=== PATIENT | male | born 1970 | race Caucasian/White ===

== ENCOUNTER 2019-04-27 17:29 | Emergency (ER) | payer OTHER ==
[~2019-04-27] VITALS: Ht 177.8 cm; Wt 102.1 kg
[2019-04-27 17:29] VITALS: BP_SYST 122
--- NOTE | 2019-04-27 17:40 | NUR ---
Patient triaged and placed in waiting room. VSS and patient appears in no acute distress at this time. Awaiting available bed, and MD notified of need for MSE.
--- NOTE | 2019-04-27 19:08 | NUR ---
REASSESSMENT; MINIMAL NUMBNESS TO RIGHT HAND AND RIGHT FACIAL; PATIENT RETURNED TO WAITING ROOM; STABLE
--- NOTE | 2019-04-27 20:03 | NUR ---
Patient to ER bed 02 to gown for evaluation. Side rails up. Report given to DOROTA Prajapati.
--- NOTE | 2019-04-27 20:05 | NUR ---
Patient report around 1700 today started to experience right sided numbness with no slurred speech non provoked. Patient now reports it has resolved but feeling tingling in tongue and jaw. Patient denies any pain. Denies any Hx. Reports having gallbladder surgery. No other complaints/injuries per patient or as noted. will continue to monitor
--- NOTE | 2019-04-27 20:11 | NUR ---
ER Dr. Daily at bedside examining patient.
--- NOTE | 2019-04-27 20:22 | NUR ---
Pt taken to CT via Radiology staff. Wheelchair
--- NOTE | 2019-04-27 20:30 | NUR ---
Patient returned from CT scan. VSS
[2019-04-27 20:45] LABS: BASOPHILS % (AUTO) 0.4 % (0.0-2.0); EOSINOPHILS # (AUTO) 0.2 K/uL (0.0-0.4); EOSINOPHILS % (AUTO) 2.8 % (0.0-4.0); HEMATOCRIT 42.5 % (36-54); HEMOGLOBIN 14.4 g/dL (14.0-18.0); LYMPHOCYTES # (AUTO) 2.3 K/uL (1.0-5.5); LYMPHOCYTES % (AUTO) 33.8 % (20.5-51.5); MEAN CORPUSCULAR HEMOGLOBIN 32 pg (27-31); MEAN CORPUSCULAR HGB CONC 34 % (32-36); MEAN CORPUSCULAR VOLUME 93 fL (79.0-98.0); MONOCYTES # (AUTO) 0.4 K/uL (0.0-1.0); MONOCYTES % (AUTO) 6.6 % (1.7-9.3); NEUTROPHILS # (AUTO) 3.8 K/uL (1.8-7.7); NEUTROPHILS % (AUTO) 56.4 % (40.0-70.0); PLATELET COUNT (AUTO) 295 K/uL (130-430); RED BLOOD CELL COUNT(AUTO) 4.58 MIL/uL (4.2-6.2); RED CELL DISTRIBUTION WIDTH 13.4 % (9.0-15.0); WHITE BLOOD COUNT (AUTO) 6.7 K/uL (4.8-10.8)
[2019-04-27 21:13] LABS: ANION GAP 9 (5-15); CALCIUM 9.3 mg/dL (8.4-11.0); CHLORIDE 104 mmol/L (98-107); CREATININE 1.19 mg/dL (0.55-1.30); GLUCOSE 94 mg/dL (70-99); POTASSIUM 4.4 mmol/L (3.5-5.1); SODIUM SERUM 140 mmol/L (136-145); UREA NITROGEN, BLOOD 21 mg/dL (8-21)
[2019-04-27 21:20] LABS: GFR AFRICAN AMERICAN 84 mL/min (>90)
[2019-04-27 21:24] LABS: ALANINE AMINOTRANSFERASE 63 U/L (12-78); ALBUMIN 4.3 g/dL (3.4-4.8); ASPARTATE AMINOTRANSFERASE 24 U/L (10-37); TOTAL BILIRUBIN 0.2 mg/dL (0.0-1.0)
[2019-04-27 22:03] LABS: THYROID STIMULATING HORMONE 3.32 uIu/mL (0.34-4.82)
[2019-04-27 22:42] VITALS: BP_SYST 132
--- NOTE | 2019-04-27 22:42 | NUR ---
Patient given written and verbal discharge instructions and verbalizes understanding. ER MD discussed with patient the results and treatment NO RX given. Patient educated on pain management and to follow up with PMD. Pain Scale 0/10 Opportunity for questions provided and answered. Medication side effect fact sheet provided.
== END 2019-04-27 22:42 | disposition home or self-care (01) ==
LOC: SED 17:29
DX: G45.9 Transient cerebral ischemic attack, unspecified (principal)
CPT/HCPCS: 36415; 70450-TC; 71045; 80053; 84443-TC; 84484; 85025; 93005; 99285